=== PATIENT | female | born 1955 | race Caucasian/White ===

== ENCOUNTER → 2016-06-15 | Outpatient (CLI) | payer BC ==
[~2016-06-15] MED LIST: BUPIVACAINE HCL 0.25% 10 ML VIAL As Ordered ONE; BUPIVACAINE HCL 0.5% 10 ML VIAL As Ordered ONE; CONRAY-43 43% 50ML VIAL (Q9960) As Ordered ONE; methylPREDNISolone SUSP 40 MG/ML (DEPO-medrol) VIAL (J1030) As Ordered ONE
--- NOTE | 2016-06-15 15:36 | REP ---
RIGHT HIP INJECTION: The procedure was performed under the direct supervision of Dr. Mccarthy. The benefits and risks including, but not limited to pain, infection, bleeding, and anaphylaxis were explained to the patient and informed consent was obtained. The right femoral neck was localized using fluoroscopic guidance. The skin was prepped and draped in a sterile fashion. 1% lidocaine was used as a local anesthetic. Using fluoroscopic guidance a 22-gauge spinal needle was inserted and advanced to the femoral neck. 0.5 mL of Conray-43 was injected to verify placement. 7 mL of a solution containing 5 mL of 0.25% Marcaine and 2 mL of Depo-Medrol 40 mg was injected. The needle was then removed. The patient tolerated the procedure well and there were no immediate complications. 2 seconds of fluoroscopy time was utilized for this procedure. Reviewed by COREY Dennison 06/16/2016 08:26 AEdited and Signed by Xander Mccarthy MD 06/16/2016 09:56 A
== END ==
LOC: M RADPRO 09:39
PROVIDERS: ATTEND Orthopaedic Surgery Orthopaedic Surgery of the Spine
DX: M16.11 Unilateral primary osteoarthritis, right hip (principal)
CPT/HCPCS: 20611; 77002; J1030; Q9960

== ENCOUNTER → 2016-09-07 | Outpatient (CLI) | payer BC ==
[2016-09-07 10:28] LABS: ALBUMIN 4.2 GM/DL (3.2-5.2); ALKALINE PHOSPHATASE 87 U/L (45-117); ALT/SGPT 27 U/L (12-78); ANION GAP 8 MEQ/L (8-16); AST/SGOT 28 U/L (15-37); BILIRUBIN,TOTAL 0.6 MG/DL (0.2-1.0); BLOOD UREA NITROGEN 18 MG/DL (7-18); CALCIUM LEVEL 9.5 MG/DL (8.5-10.1); CARBON DIOXIDE LEVEL 29 MEQ/L (21-32); CHLORIDE LEVEL 101 MEQ/L (98-107); CHOLESTEROL LEVEL 257 MG/DL (<200); CREATININE FOR GFR 0.75 MG/DL (0.55-1.02); GLOMERULAR FILTRATION RATE > 60.0 (>51); GLUCOSE, FASTING 99 MG/DL (70-105); POTASSIUM SERUM 4.5 MEQ/L (3.5-5.1); SODIUM LEVEL 138 MEQ/L (136-145); TOTAL PROTEIN 7.7 GM/DL (6.4-8.2); TRIGLYCERIDES LEVEL 63 MG/DL (<150)
== END ==
LOC: M LAB 08:59
PROVIDERS: ATTEND Family Medicine
DX: Z00.00 Encounter for general adult medical examination without abnormal findings (principal)

== ENCOUNTER → 2017-01-27 | Outpatient (CLI) | payer BC ==
[~2017-01-27] MED LIST changes: -BUPIVACAINE HCL 0.5% 10 ML VIAL As Ordered ONE; +LIDOCAINE 1% MDV 20ML VIAL As Ordered ONE
--- NOTE | 2017-01-27 15:15 | REP ---
Left hip injection The procedure was performed under the direct supervision of Dr. Mccarthy. The benefits and risks including but not limited to pain infection and bleeding and anaphylaxis were explained to the patient and informed consent was obtained. The left femoral neck was localized using fluoroscopic guidance. The skin was prepped and draped in a sterile fashion. 1% lidocaine was used as a local anesthetic. Using fluoroscopic guidance a 22-gauge spinal needle was inserted and advanced to the femoral neck. 0.5 ml of Conray 43 was injected to verify placement. 7 ml of a solution containing 5 ml of 0.25% Marcaine and 2 ml of Depo Medrol 40 mg was injected. The needle was then removed. The patient tolerated the procedure well and there were no immediate complications. 3 seconds of fluoro time was utilized for this procedure. Reviewed by COREY Dennison 01/27/2017 12:49 PSigned by Xander Mccarthy MD 01/27/2017 03:06 P
== END ==
LOC: M RADPRO 10:21
PROVIDERS: ATTEND Physician Assistant Medical
DX: M25.552 Pain in left hip (principal); M25.551 Pain in right hip
CPT/HCPCS: 20610; 77002; J1030; Q9960

== ENCOUNTER → 2017-01-31 | Outpatient (CLI) | payer BC ==
[~2017-01-31] MED LIST changes: -LIDOCAINE 1% MDV 20ML VIAL As Ordered ONE
--- NOTE | 2017-01-31 16:11 | REP ---
RIGHT HIP ARTHROGRAM: The procedure was performed by COREY Trivedi under the direct supervision of Dr. Wilkinson. The procedure along with its risks, benefits, and complications were discussed with the patient prior to the examination. Informed consent was obtained both verbally and written. The right femoral neck was localized using fluoroscopic guidance. The skin was marked, prepped and draped in the usual sterile fashion. A procedural "time out" was performed to ensure that the correct patient, site and procedure were being performed. 1% lidocaine was used for local anesthetic. Under fluoroscopic guidance a 22-gauge spinal needle was inserted and advanced to the femoral neck. 0.5 mL of Conray-60 was injected to verify needle placement. 7 mL of solution containing 5 mL of 0.25% Marcaine and 2 mL of Depo-Medrol 40 were injected into the joint space. The needle was then removed. The patient tolerated the procedure well and had no immediate complications. Fluoroscopy time: 5 seconds. Reviewed by COREY Scruggs 01/31/2017 04:16 PEdited and Signed by Delvin Wilkinson MD 01/31/2017 04:49 P
== END ==
LOC: M RADPRO 09:40
PROVIDERS: ATTEND Physician Assistant Medical
DX: M25.551 Pain in right hip (principal); M25.552 Pain in left hip
CPT/HCPCS: 20610; 77002; J1030; Q9960

== ENCOUNTER → 2017-04-28 | Outpatient (CLI) | payer BC ==
--- NOTE | 2017-04-28 09:52 | REPMRS ---
Patient History The patient states she had a clinical breast exam in Patient is postmenopausal. Family history of ovarian cancer in paternal aunt at age 50 or over. Digital Woman Screen Mammo: April 28, 2017 - Exam #: [id number] Bilateral CC and MLO view(s) were taken. Technologist: Abbie Lo, Technologist Prior study comparison: May 05, 2016, digital woman screen mammo performed at [facility]. May 04, 2015, digital woman screen mammo performed at [facility]. FINDINGS: There are scattered fibroglandular densities. There has been no change in the appearance of the mammogram from the prior studies. There is a mild amount of residual fibroglandular tissue which is fairly symmetric. There is no interval development of dominant mass, architectural distortion, or clustered microcalcification suggestive of malignancy. ASSESSMENT: BI-RADS/ACR category 1 mammogram. Negative. Recommendation Routine screening mammogram in 1 year (for women over age 40). This mammogram was interpreted with the aid of an FDA-approved computer-aided dectection system. Electronically Signed By: Delvin Wilkinson MD 04/28/17 0952
== END ==
LOC: M WHC 08:27
PROVIDERS: ATTEND Nurse Practitioner Women's Health
DX: Z12.31 Encounter for screening mammogram for malignant neoplasm of breast (principal)

== ENCOUNTER → 2017-04-28 | Outpatient (REF) | payer BC | LOC: M SFHCWAGY 08:52 | PROVIDERS: ATTEND Nurse Practitioner Women's Health | DX: Z12.4 Encounter for screening for malignant neoplasm of cervix (principal) ==

== ENCOUNTER → 2017-08-04 | Outpatient (CLI) | payer BC ==
[~2017-08-04] MED LIST changes: +BUPIVACAINE HCL 0.25% 10 ML VIAL As Ordered; -BUPIVACAINE HCL 0.25% 10 ML VIAL As Ordered ONE; +CONRAY-43 43% 50ML VIAL (Q9960) As Ordered; -CONRAY-43 43% 50ML VIAL (Q9960) As Ordered ONE; +methylPREDNISolone SUSP 40 MG/ML (DEPO-medrol) VIAL (J1030) As Ordered; -methylPREDNISolone SUSP 40 MG/ML (DEPO-medrol) VIAL (J1030) As Ordered ONE
== END ==
LOC: M RADPRO 09:05
DX: M25.551 Pain in right hip (principal); M25.552 Pain in left hip; M16.10 Unilateral primary osteoarthritis, unspecified hip
CPT/HCPCS: 20610

== ENCOUNTER → 2017-09-07 | Outpatient (CLI) | payer BC ==
[2017-09-07 10:36] LABS: TOTAL 25(OH) VITAMIN D 69.2 NG/ML (30.0-100.0)
[2017-09-07 10:40] LABS: ALBUMIN 4.1 GM/DL (3.2-5.2); ALBUMIN/GLOBULIN RATIO 1.24 (1.00-1.93); ALKALINE PHOSPHATASE 81 U/L (45-117); ALT/SGPT 24 U/L (12-78); ANION GAP 8 MEQ/L (8-16); AST/SGOT 24 U/L (7-37); BILIRUBIN,TOTAL 0.4 MG/DL (0.2-1.0); BLOOD UREA NITROGEN 16 MG/DL (7-18); CALCIUM LEVEL 9.2 MG/DL (8.8-10.2); CARBON DIOXIDE LEVEL 25 MEQ/L (21-32); CHLORIDE LEVEL 108 MEQ/L (98-107); CHOLESTEROL LEVEL 243 MG/DL (<200); CREATININE FOR GFR 0.75 MG/DL (0.55-1.30); GLOMERULAR FILTRATION RATE > 60.0 (>45); GLUCOSE, FASTING 98 MG/DL (70-100); HDL CHOLESTEROL 90 MG/DL (>40); LDL CHOLESTEROL 136.6 MG/DL (<100); NON-HDL-C 153 MG/DL; POTASSIUM SERUM 4.3 MEQ/L (3.5-5.1); SODIUM LEVEL 141 MEQ/L (136-145); TOTAL PROTEIN 7.4 GM/DL (6.4-8.2); TRIGLYCERIDES LEVEL 82 MG/DL (<150)
== END ==
LOC: M LAB 09:14
DX: Z00.00 Encounter for general adult medical examination without abnormal findings (principal); E78.5 Hyperlipidemia, unspecified; E07.9 Disorder of thyroid, unspecified; E55.9 Vitamin D deficiency, unspecified

== ENCOUNTER → 2017-12-16 | Outpatient (CLI) | payer BC ==
[2017-12-16 19:05] LABS: HEMATOCRIT 40.1 % (36.0-47.0)
[2017-12-16 19:14] LABS: ESTIMATED AVERAGE GLUCOSE 100 MG/DL (60-110); HEMOGLOBIN A1c 5.1 %
[2017-12-16 19:18] LABS: ALBUMIN 4.4 GM/DL (3.2-5.2)
[2017-12-16 19:18] LABS: IRON (FE) 80 UG/DL (50-170); PERCENT SATURATION 18.2 % (13.2-45.0); TOTAL IRON BINDING CAPACITY 439 UG/DL (250-450)
== END ==
LOC: M WUC 10:27
DX: M16.11 Unilateral primary osteoarthritis, right hip (principal); M25.551 Pain in right hip
CPT/HCPCS: 82040

== ENCOUNTER 2017-12-19 06:44 | Outpatient (RCR) | payer BC | END 2018-01-12 | LOC: M PT 06:44 | DX: M16.11 Unilateral primary osteoarthritis, right hip (principal); Z51.89 Encounter for other specified aftercare ==

== ENCOUNTER → 2018-05-31 | Outpatient (CLI) | payer BC ==
--- NOTE | 2018-05-31 17:46 | REPMRS ---
Patient History The patient states she had a clinical breast exam in 06/02 Family history of ovarian cancer at age 50 or over in paternal aunt. Digital Woman Screen Mammo: May 31, 2018 - Exam #: [id number] Bilateral CC and MLO view(s) were taken. Technologist: Jody Calvert, Technologist Prior study comparison: April 28, 2017, digital woman screen mammo performed at [facility]. May 05, 2016, digital woman screen mammo performed at [facility]. May 04, 2015, digital woman screen mammo performed at [facility]. FINDINGS: There are scattered fibroglandular densities. There is a moderate amount of residual fibroglandular tissue which is fairly symmetric. There is no interval development of dominant mass, architectural distortion, or clustered microcalcification typical of malignancy. There has been no change in the appearance of the mammogram from the prior studies. 3-D tomosynthesis shows no additional findings. Assessment: BI-RADS/ACR category 1 mammogram. Negative. Recommendation Routine screening mammogram of both breasts in 1 year (for women over age 40). This patient's Lifetime Breast Cancer RIsk is estimated at 8.1 %. This mammogram was interpreted with the aid of an FDA-approved computer-aided dectection system. Electronically Signed By: Kennedy Mccarthy MD 05/31/18 [id number]
--- NOTE | 2018-06-04 15:35 | DEXA ---
AP SPINE L1 - L4 1.123 -0.6 0.7 LT FEMUR TOTAL 0.765 -1.9 -1.0 LT NECK 0.860 -1.3 -1.0 RT FEMUR TOTAL Right hip replacement. RT NECK TOTAL BODY TOTAL OTHER COMMENTS: Normal bone densitometry of the spine. There is low bone density of the left hip. The density of the spine has decreased 14.7% since the initial exam on 05/10/2007. The spine density has decreased 6.4% since the most recent exam on 05/04/2015. The density of the left hip has decreased 11.7% since the initial exam on 05/10/2007. The density of the left hip has decreased 1.0% since the most recent exam on 05/04/2015. The density of the right hip is N/A. FOLLOW-UP: Recommendation for the next bone density exam: 2 years. NEHA
== END ==
LOC: M WHC 07:19
PROVIDERS: ATTEND Nurse Practitioner Women's Health
DX: Z12.31 Encounter for screening mammogram for malignant neoplasm of breast (principal); Z78.0 Asymptomatic menopausal state; Z80.41 Family history of malignant neoplasm of ovary; Z96.641 Presence of right artificial hip joint; M85.852 Other specified disorders of bone density and structure, left thigh

== ENCOUNTER → 2018-06-08 | Outpatient (CLI) | payer BC ==
[2018-06-08 12:40] LABS: HEMATOCRIT 41.5 % (36.0-47.0); HEMOGLOBIN 13.5 g/dl (12.0-15.5)
[2018-06-08 13:11] LABS: ALBUMIN 4.3 GM/DL (3.2-5.2); PERCENT SATURATION 16.7 % (13.2-45.0); THYROID STIMULATING HORMONE 3.1 uIU/ML (0.358-3.740)
[2018-06-08 13:27] LABS: HEMOGLOBIN A1c 5.3 %
== END ==
LOC: M LAB 10:55
PROVIDERS: ATTEND Orthopaedic Surgery
DX: M62.81 Muscle weakness (generalized) (principal); M25.552 Pain in left hip; M16.12 Unilateral primary osteoarthritis, left hip

== ENCOUNTER 2018-06-11 08:43 | Outpatient (RCR) | payer BC | END 2018-06-14 | LOC: M PT 08:43 | PROVIDERS: ATTEND Orthopaedic Surgery | DX: M25.552 Pain in left hip (principal) ==

== ENCOUNTER → 2018-06-20 | Outpatient (REF) | payer BC ==
[2018-06-20 14:15] LABS: INR 0.87; PROTHROMBIN TIME 11.9 SECONDS (12.1-14.4)
[2018-06-20 14:16] LABS: APPEARANCE, URINE CLEAR (CLEAR); BACTERIA, URINE AUTO NEGATIVE (NEGATIVE); BILIRUBIN, URINE AUTO NEGATIVE (NEGATIVE); BLOOD, URINE BLOOD NEGATIVE (NEGATIVE); COLOR, URINE STRAW (YELLOW); GLUCOSE, URINE (UA) AUTO NEGATIVE (NEGATIVE); KETONE, URINE AUTO NEGATIVE (NEGATIVE); LEUKOCYTE ESTERASE, URINE AUTO NEGATIVE (NEGATIVE); NITRITE, URINE AUTO NEGATIVE (NEGATIVE); PARTIAL THROMBOPLASTIN TIME 33.5 SECONDS (25.4-37.6); PROTEIN, URINE AUTO NEGATIVE (NEGATIVE); RBC, URINE AUTO 0 /HPF (0-3); SPECIFIC GRAVITY URINE AUTO 1.006 (1.002-1.035); SQUAMOUS EPITHELIAL CELL UR AU 0 /HPF (0-6); UROBILINOGEN, URINE AUTO 0.2 mg/dL (0.0-2.0); WBC, URINE AUTO 0 /HPF (0-3)
== END ==
LOC: M LAB REF 13:06
PROVIDERS: ATTEND Family Medicine
DX: Z01.818 Encounter for other preprocedural examination (principal); M16.9 Osteoarthritis of hip, unspecified; M85.9 Disorder of bone density and structure, unspecified

== ENCOUNTER → 2018-12-05 | Outpatient (REF) | payer BC | LOC: M SFHCPLAZ 18:07 | PROVIDERS: ATTEND Dermatology | DX: D04.72 Carcinoma in situ of skin of left lower limb, including hip (principal) ==

== ENCOUNTER → 2019-01-30 | Outpatient (REF) | payer BC | LOC: M LAB REF 18:22 | PROVIDERS: ATTEND Dermatology | DX: D23.5 Other benign neoplasm of skin of trunk (principal) ==

== ENCOUNTER 2019-05-22 08:05 | Day surgery (SDC) | payer BC ==
[~2019-05-22] VITALS: Ht 160 cm; Wt 54.2 kg
[~2019-05-22 08:05] MED LIST changes: -BUPIVACAINE HCL 0.25% 10 ML VIAL As Ordered; +CALC500C14 PO; +CELE1CAP9 PO; -CONRAY-43 43% 50ML VIAL (Q9960) As Ordered; +MULTCAP PO; +NS 1,000 ML IV ONE; +VITA250T4 PO; +VITA500079 PO; +ZINC1TAB2 PO; -methylPREDNISolone SUSP 40 MG/ML (DEPO-medrol) VIAL (J1030) As Ordered
[2019-05-22] MEDS ORDERED: LIDOCAINE 2% INJ 100 MG/5 ML SDV (FOR ANES.) As Ordered ONE (08:28)
[2019-05-22] MEDS ORDERED: propofoL 200 MG/20 ML VIAL As Ordered ONE ×2 (08:28→09:15)
--- NOTE | 2019-05-22 09:23 | ROOR ---
Patient Name: Cher Vivas Procedure Date: 05/22/2019 8:44 AM Date of : 1955 Age: 64 Room: [facility] Gender: Female Note Status: Finalized Procedure: Total Colonoscopy to Cecum Indications: Screening for colorectal malignant neoplasm Providers: Celestino Theodore MD Referring MD: Neto Camp MD Requesting Provider: Medicines: Monitored Anesthesia Care Complications: No immediate complications. Procedure: Pre-Anesthesia Assessment: - The heart rate, respiratory rate, oxygen saturations, blood pressure, adequacy of pulmonary ventilation, and response to care were monitored throughout the procedure. The Colonoscope was introduced through the anus and advanced to the cecum, identified by appendiceal orifice and ileocecal valve. The colonoscopy was performed without difficulty. The patient tolerated the procedure well. The quality of the bowel preparation was excellent. Findings: The perianal and digital rectal examinations were normal. Non-bleeding internal hemorrhoids were found during retroflexion. The hemorrhoids were small and Grade I (internal hemorrhoids that do not prolapse). Multiple small-mouthed diverticula were found in the recto-sigmoid colon, sigmoid colon and descending colon. The exam was otherwise without abnormality on direct and retroflexion views. Impression: - Non-bleeding internal hemorrhoids. - Diverticulosis in the recto-sigmoid colon, in the sigmoid colon and in the descending colon. - The examination was otherwise normal on direct and retroflexion views. - No specimens collected. - The exam was otherwise normal to the cecum. Recommendation: - Patient has a contact number available for emergencies. The signs and symptoms of potential delayed complications were discussed with the patient. Return to normal activities tomorrow. Written discharge instructions were provided to the patient. - High fiber diet. - Discharge patient to home. - Continue present medications. - Repeat colonoscopy in 10 years for screening purposes. - Return to referring physician. - The findings and recommendations were discussed with the patient's family. Celestino Theodore MD Celestino Theodore MD 05/22/2019 9:23:08 AM Electronically signed by Celestino Theodore MD Number of Addenda: 0 Note Initiated On: 05/22/2019 8:44 AM Estimated Blood Loss: Estimated blood loss: none.
[2019-05-22 09:40] VITALS: BP 95/52
== END 2019-05-22 09:51 | disposition home or self-care (01) ==
LOC: M OPP 08:05
PROVIDERS: ATTEND Internal Medicine Gastroenterology
DX: Z12.11 Encounter for screening for malignant neoplasm of colon (principal); K64.0 First degree hemorrhoids; K57.30 Diverticulosis of large intestine without perforation or abscess without bleeding

== ENCOUNTER → 2019-06-03 | Outpatient (CLI) | payer BC ==
[~2019-06-03] MED LIST changes: -NS 1,000 ML IV ONE
--- NOTE | 2019-06-03 15:37 | REPMRS ---
Patient History The patient states she had a clinical breast exam in May 2019.Family history of ovarian cancer at age 50 or over in paternal aunt. Digital Woman Screen Mammo: June 03, 2019 - Exam #: [id number] Bilateral CC and MLO view(s) were taken. Technologist: Naheed Rebollar, Technologist Prior study comparison: May 31, 2018, bilateral digital woman screen mammo performed at [facility]. April 28, 2017, digital woman screen mammo performed at [facility]. May 05, 2016, digital woman screen mammo performed at [facility]. FINDINGS: There are scattered fibroglandular densities. There is a moderate amount of residual fibroglandular tissue which is fairly symmetric. There is no interval development of dominant mass, architectural distortion, or grouped microcalcification typical of malignancy. There has been no change in the appearance of the mammogram from the prior studies. 3-D tomosynthesis shows no additional findings. Assessment: BI-RADS/ACR category 1 mammogram. Negative Mammogram. Recommendation Routine screening mammogram of both breasts in 1 year (for women over age 40). This patient's Lifetime Breast Cancer RIsk is estimated at 7.8 %. This mammogram was interpreted with the aid of an FDA-approved computer-aided dectection system. Electronically Signed By: Kennedy Mccarthy MD 06/03/19 [id number]
== END ==
LOC: M WHC 10:17
PROVIDERS: ATTEND Nurse Practitioner Women's Health
DX: Z12.31 Encounter for screening mammogram for malignant neoplasm of breast (principal)

== ENCOUNTER → 2019-06-03 | Outpatient (REF) | payer BC | LOC: M SFHCWAGY 13:20 | PROVIDERS: ATTEND Nurse Practitioner Women's Health | DX: Z12.4 Encounter for screening for malignant neoplasm of cervix (principal) ==

== ENCOUNTER → 2019-12-05 | Outpatient (CLI) | payer BC ==
[2019-12-05 10:18] LABS: ALBUMIN 4.4 GM/DL (3.2-5.2); ALT/SGPT 25 U/L (12-78); BILIRUBIN,TOTAL 0.4 MG/DL (0.2-1.0); BLOOD UREA NITROGEN 22 MG/DL (7-18); CALCIUM LEVEL 9.6 MG/DL (8.8-10.2); CARBON DIOXIDE LEVEL 31 MEQ/L (21-32); CHLORIDE LEVEL 104 MEQ/L (98-107); CHOLESTEROL LEVEL 252 MG/DL (<200); CHOLESTEROL RISK RATIO 2.709 (<5); CREATININE FOR GFR 0.84 MG/DL (0.55-1.30); GLOMERULAR FILTRATION RATE > 60.0 (>45); GLUCOSE, FASTING 103 MG/DL (70-100); HDL CHOLESTEROL 93 MG/DL (>40); LDL CHOLESTEROL 149 MG/DL (<100); NON-HDL-C 159 MG/DL; POTASSIUM SERUM 4.1 MEQ/L (3.5-5.1); SODIUM LEVEL 139 MEQ/L (136-145); TOTAL PROTEIN 7.7 GM/DL (6.4-8.2); TRIGLYCERIDES LEVEL 49 MG/DL (<150)
== END ==
LOC: M LAB 09:21
PROVIDERS: ATTEND Family Medicine
DX: Z00.00 Encounter for general adult medical examination without abnormal findings (principal)

== ENCOUNTER → 2020-06-11 | Outpatient (CLI) | payer BC ==
[2020-06-11 14:51] LABS: ALBUMIN 4.3 GM/DL (3.2-5.2); ALT/SGPT 27 U/L (12-78); BILIRUBIN,TOTAL 0.3 MG/DL (0.2-1.0); BLOOD UREA NITROGEN 13 MG/DL (7-18); CALCIUM LEVEL 10.2 MG/DL (8.8-10.2); CARBON DIOXIDE LEVEL 29 MEQ/L (21-32); CHLORIDE LEVEL 97 MEQ/L (98-107); CHOLESTEROL LEVEL 235 MG/DL (<200); CHOLESTEROL RISK RATIO 3.012 (<5); CREATININE FOR GFR 0.73 MG/DL (0.55-1.30); FREE T4 1.07 NG/DL (0.76-1.46); GLOMERULAR FILTRATION RATE > 60.0 (>45); GLUCOSE, FASTING 92 MG/DL (70-100); HDL CHOLESTEROL 78 MG/DL (>40); LDL CHOLESTEROL 139 MG/DL (<100); NON-HDL-C 157 MG/DL; POTASSIUM SERUM 4.3 MEQ/L (3.5-5.1); SODIUM LEVEL 133 MEQ/L (136-145); TOTAL PROTEIN 7.5 GM/DL (6.4-8.2); TRIGLYCERIDES LEVEL 88 MG/DL (<150)
[2020-06-11 15:52] LABS: TOTAL 25(OH) VITAMIN D 61.8 NG/ML (30.0-100.0)
== END ==
LOC: M LAB 11:52
PROVIDERS: ATTEND Family Medicine
DX: E78.5 Hyperlipidemia, unspecified (principal); E07.9 Disorder of thyroid, unspecified

== ENCOUNTER → 2020-06-16 | Outpatient (CLI) | payer BC ==
--- NOTE | 2020-06-16 11:43 | REPMRS ---
Patient History The patient states she had a clinical breast exam in 06/2020 Patient is postmenopausal and has history of skin cancer at age 63. Family history of ovarian cancer at age 50 or over in paternal aunt. Digital Woman Screen Mammo: June 16, 2020 - Exam #: [id number] Bilateral CC and MLO view(s) were taken. Technologist: Jody Calvert, Technologist Prior study comparison: June 03, 2019, bilateral digital woman screen mammo performed at [facility]. May 31, 2018, bilateral digital woman screen mammo performed at [facility]. April 28, 2017, digital woman screen mammo performed at [facility]. FINDINGS: The breast tissue is heterogeneously dense. This may lower the sensitivity of mammography. The Volpara volumetric breast density category is: C. There is a moderate amount of heterogeneously dense fibroglandular tissue which is fairly symmetric. There is no interval development of dominant mass, architectural distortion, or grouped microcalcification typical of malignancy. There has been no change in the appearance of the mammogram from the prior studies. 3-D tomosynthesis shows no additional findings. Assessment: BI-RADS/ACR category 1 mammogram. Negative Mammogram. Recommendation Routine screening mammogram of both breasts in 1 year (for women over age 40). This patient's [facility] Lifetime Breast Cancer RIsk is estimated at 7.5 %. This mammogram was interpreted with the aid of an FDA-approved computer-aided dectection system. Electronically Signed By: Kennedy Mccarthy MD 06/16/20 2630
== END ==
LOC: M WHC 10:01
PROVIDERS: ATTEND Nurse Practitioner Women's Health
DX: Z12.31 Encounter for screening mammogram for malignant neoplasm of breast (principal); Z85.828 Personal history of other malignant neoplasm of skin

== ENCOUNTER 2020-06-25 16:44 | Emergency (ER) | payer BC ==
[~2020-06-25] VITALS: Ht 160 cm; Wt 60.4 kg
--- OUTSIDE RECORDS SUMMARY | 2020-06-25 16:53 | CCD | Continuity of Care Document ---
Author Author Cher BRONSON M.D. Organization Unknown Address [address] [address] Phone [phone] Care Team Providers Care Enginehouse Brakeman Name Role Phone Neto Bronson MD [facility] [phone] Problems Active Problems Provider Date Cartilage disorder Onset: Insomnia Onset: Hyperlipidemia Onset: Social History Type Date Description Comments Sex Unknown ETOH Use consumes 2-3 beers per day Tobacco Use Start: Unknown Patient has never smoked Allergies, Adverse Reactions, Alerts Description No Known Drug Allergies Medications Active Medications SIG Qnty Indications Ordering Provide r Date Glucosamine-Chondroitin Capsules by mouth bid Neto Bronson M.D. 02/23/2016 Vitamin D3 2000Unit Capsules 1 by mouth every day Neto Bronson M.D. 02/23/2016 Tylenol Extra Strength 500mg Table ts 2 pills bid Neto Bronson M.D. 02/23/2016 Calcium 600 600mg Tablets 1 p o bid Neto Bronson M.D. 12/09/2014 Vitamin C 1000mg Tablets 1 by mouth every day Neto Bronson M.D. 12/09/2014 Multivitamins Capsules 1 by mouth every day Neto Bronson M.D. 12/09/2014 Immunizations CPT Code Status Date Vaccine Lot # [id number] Given 04/14/2019 Shingrix Zoster Vaccine (HZV), Recombinant, Subunit, Adjuvanted U-Flu Given 02/19/2018 Influenza,Unspecified 34030 Given 02/12/2014 Influenza Virus Vaccine 40919 Given 04/03/2013 Influenza Virus Vaccine 10979 Given 03/08/2012 Influenza Virus Vaccine 67966 Given 05/15/2009 Adacel- Tetanus Diphtheria P ertussis (Age64 & Under) 45780 Given 05/15/2009 Influenza Virus Vaccine Vital Signs Date Vital Result Comment 06/17/2020 8:01am BP Systolic 126 mmHg BP Diastolic 70 mmHg Heart Rate 72 /min Height 64 inches 5'4" Weight 127.00 lb BMI (Body Mass Index) 21.8 kg/m2 12/10/2019 1:08pm BP Systolic 146 mmHg BP Diastolic 90 mmHg BP Systolic Recheck 128 mmHg BP Diastolic Recheck 78 mmHg Heart Rate 92 /min Height 64 inches 5'4" Weight 125.00 lb BMI (Body Mass Index) 21.5 kg/m2 Results Test Acquired Date Facility Test Result H/L Range Note Comprehensive Metabolic Profil 06/11/2020 [facility] [address] [place] [address] [phone] Glucose, Fasting 92 mg/dL Normal 70-100 Blood Urea Nitrogen 13 mg/dL Normal 7-18 Creatinine For GFR 0.73 mg/dL Normal 0.55-1.30 Glomerular Filtration Rate > 60.0 Normal >45 1 Sodium Level 133 mEq/L Low 136-145 Potassium Serum 4.3 mEq/L Normal 3.5-5.1 Chloride Level 97 mEq/L Low 98-107 Carbon Dioxide Level 29 mEq/L Normal 21-32 Anion Gap 7 mEq/L Low 8-16 Calcium Level 10.2 mg/dL Normal 8.8-10.2 Ast/Sgot 23 U/L Normal 7-37 Alt/SGPT 27 U/L Normal 12-78 Alkaline Phosphatase 95 U/L Normal 45-117 Bilirubin,Total 0.3 mg/dL Normal 0.2-1.0 Total Protein 7.5 GM/DL Normal 6.4-8.2 Albumin 4.3 GM/DL Normal 3.2-5.2 Albumin/Globulin Ratio 1.3 Normal 1.2-2.2 Lipid Panel 06/11/2020 [facility] [address] [address] [place] [address] [phone] Triglycerides Level 88 mg/dL Normal <150 Cholesterol Level 235 mg/dL High <200 HDL Cholesterol 78 mg/dL Normal >40 LDL Cholesterol 139 mg/dL High <100 Non-HDL-C 157 mg/dL Normal Cholesterol Risk Ratio 3.012 Normal <5 FT4&TSH Panel 06/11/2020 [facility] [address] [place] [address] [phone] Thyroid Stimulating Hormone 2.690 uIU/ML Normal 0. 358-3.740 Free T4 1.07 ng/dL Normal 0.76-1.46 Laboratory test finding 06/11/2020 [facility] [address] [place] [address] [phone] Total 25(Oh) Vitamin D 61.8 NG/ML Normal 30.0-100. 0 1 Units are mL/min/1.73 m2 Chronic Kidney Disease Staging per NKF: Stage I & II GFR >=60 Normal to Mildly Decreased Stage III GFR 30-59 Moderately Decreased Stage IV GFR 15-29 Severely Decreased Stage V GFR <15 Very Little GFR Left ESRD GFR <15 on SECRET CODE EXPERT Procedures Date Code Description Status 05/22/2019 [id number] Colonoscopy Completed 05/31/2018 [id number] Bone Mineral Density Test Comple justin 05/31/2018 [id number] Mammogram Completed 04/28/2017 [id number] Mammogram Completed 05/04/2015 [id number] Bone Mineral Density Test Comple justin 05/04/2015 [id number] Mammogram Completed 05/03/2013 [id number] Mammogram Completed 08/14/2008 [id number] Colonoscopy Completed Medical Devices Description No Information Available Encounters Type Date Location Provider Dx Diagnosis Office Visit 06/17/2020 8:00a [facility] Neto Bronson M.D. Z00.00 Encntr for general adult medical exam w/ o abnormal findings E78.5 Hyperlipidemia, unspecified E07.9 Disorder of thyroid, unspeci fied E55.9 Vitamin D deficiency, unspec ified M85.9 Disorder of bone density and structure, unspecified Z85.828 Personal history of other ma lignant neoplasm of skin Z96.643 Presence of artificial hip j oint, bilateral Assessments Date Code Description Provider 06/17/2020 Z00.00 Encounter for genera l adult medical examination without abnormal findings Neto Bronson M.D. 06/17/2020 E78.5 Hyperlipidemia, unspecified Alexis Bronson M.D. 06/17/2020 E07.9 Disorder of thyroid, unspecified Neto Bronson M.D. 06/17/2020 E55.9 Vitamin D deficiency, unspecifie d Neto Bronson M.D. 06/17/2020 M85.9 Disorder of bone density and str ucture, unspecified Neto Bronson M.D. 06/17/2020 Z85.828 Personal history of other malign ant neoplasm of skin Neto Bronson M.D. 06/17/2020 Z96.643 Presence of artificial hip joint , bilateral Neto Bronson M.D. Plan of Treatment Future Appointment(s):* 12/29/2020 8:00 am - Neto Bronson M.D. at [facility] 06/17/2020 - Neto Bronson M.D.* Z00.00 Encntr for general adult medical exam w/o abnormal findings * E78.5 Hyperlipidemia, unspecified * E07.9 Disorder of thyroid, unspecified * E55.9 Vitamin D deficiency, unspecified * M85.9 Disorder of bone density and structure, unspecified * Z85.828 Personal history of other malignant neoplasm of skin * Z96.643 Presence of artificial hip joint, bilateral * * Comments:* 1. Annual wellness visit: Well education was done today. She usually sees Naheed Rodriguez for her Computer Systems Information Director care, although has not seen her recently. She has recently changed her dentist and follows with Dr. Irvin. Immunization discussed and she is up to date with her Tdap. She overall feels great and will continue appropriate follow up.2. Hyperlipidemia: Her lipids are improved from prior check. Her 10-year risk for heart attack and stroke is 3.7%. She does not need any medicine at this point. She will continue to watch her diet and encouraged to be more active.3. Thyroid disorder: Normalized TSH after her borderline high on last check. Her free T4 is always normal. Discussed about her thyroid levels in detail. She is at subclinical hypothyroidism. We will continue to monitor and treat if necessary.4. Vitamin D deficiency: Normal vitamin D level with history of osteopenia. She will continue supplementation at current dose. We will monitor.5. Personal history of malignant neoplasm of skin: Follows with Dr. Coker annually. We will monitor.6. Disorder of bone density and structure: She does have osteopenia. She has been on Calcium and Vitamin D supplementation. I have encouraged her to exercise when possible. Her last Dexa scan was in May 2018 and will obtain a new one appropriately. We will monitor.7. Presence of artificial hip joint, bilateral: Stable. Saw at [facility] [place] [place] prior. She will follow up with them as needed.8. Raynaud's phenomenon: Involving hands and fingers. Discussed about this in detail and education was done. I have encouraged her to use warm gloves and protect herself from frostbite. She will let me know if she has any concerns. We will monitor.Ongoing cares: I am going to see her again in 6 months with CMP, lipids, TSH and FT4. If she has new problems or issues sooner she will let us know. Functional Status Description No Information Available Mental Status Description No Information Available Referrals Description No Information Available
--- OUTSIDE RECORDS SUMMARY | 2020-06-25 16:53 | CCD ---
Author Author [facility] Organization [facility] Address Unknown Phone Unavailable Care Team Providers Care Die Mounter Name Role Phone Naheed Rodriguez Unavailable PROBLEMS Type Condition ICD9-CM Code [id number] Code Onset Dates Condition S tatus W/U Status Risk SNOMED Code Notes Problem Actinic keratoses L57.0 Active confirmed 40 1425998 Problem Seborrheic keratoses L82.1 Active confirmed 119589696 Problem History of nonmelanoma skin cancer Z85.828 Activ e confirmed 853921714 Problem Postmenopausal bleeding 627.1 Active confirmed 47845872 Problem Melanocytic nevi of right upper limb, including shoulder D22.61 Active confirmed 548332613 Problem Lentigines L81.4 Active confirmed 111303765 Problem Melanocytic nevi of trunk D22.5 Active confirmed 202282785 Problem Osteopenia after menopause M81.0 Active confirmed 969814387 Problem Melanocytic nevi of face D22.30 Active confirmed 255903921 Problem Melanocytic nevi of left lower limb, including hip D22.72 Active confirmed 876402936 Problem Melanocytic nevi of right lower limb, including hip D22.71 Active confirmed 284155779 Problem Melanocytic nevi of left upper limb, including shoulder D22.62 Active confirmed 116627832 ALLERGIES No Known Allergies ENCOUNTERS from 1955 to 2020-06-19 Encounter Location Date Provider Diagnosis [facility] [address] [place] [address] Jun, Naheed Rodriguez Routine gynecologica l examination Z01.419 and Breast cancer screening by mammogram Z12.31 IMMUNIZATIONS No Information SOCIAL HISTORY Tobacco Use: Social History Observation Description Date Details (start date - stop date) Never Smoker Sex Assigned At : Social History Observation Description Sex Assigned At Unknown Sexual Hx: Question Answer Notes Had sex in the last 12 months (vaginal, oral, or anal)? Yes LMP: post menopause Have you ever had an STD? No with Men only Use protection? No Alcohol Screening: Question Answer Notes Did you have a drink containing alcohol in the past year? Ye s Points 4 Interpretation Positive How often did you have six or more drinks on one occas ion in the past year? Less than monthly (1 point) How many drinks did you have on a typica l day when you were drinking in the past year? 1 or 2 (0 points) How often did you have a drink containing alcohol in t he past year? Two to three times per week (3 points) Tobacco Use: Question Answer Notes Are you a: never smoker never smoker REASON FOR REFERRAL No Information VITAL SIGNS Weight 125 lbs Jun, Weight-kg 56.7 kg Jun, Height 63.25 in Jun, BMI 21.97 kg/m2 Jun, Blood pressure systolic 110 mm Hg Jun, Blood pressure diastolic 72 mm Hg Jun, MEDICATIONS Medication SIG (Take, Route, Frequency, Duration) Notes Start Da te End Date Status Multivitamins otc 1 tablet Orally once a day Active Fish Oil 1000 MG 1 capsule Orally once a day Not-Taking Glucosamine 500 MG 1 capsule with a meal Orally Daily Active Calcium 600 + D 600-400 MG-UNIT 1 tablet Orally twice a day Active Zinc 100 mg 1 tab(s) p.o. Once a day for 30 day(s) Active Vitamin D 1000 UNIT 1 tablet Orally Once a day Active Vitamin C 500 MG 1 tablet Orally once a day Active PROCEDURES No Information RESULTS Component Value Reference Range WWBC DIGITAL / [place] BILATERAL MAMMO SCRE ENING (Ultrasound if indicated) Reviewed date:06/18/2020 11:55:50 Interpretation:Negative Performing Lab:[facility],[address]], ,[place] [id number] REASON FOR VISIT ANNUAL/MAMMO MEDICAL (GENERAL) HISTORY Type Description Date Medical History family history osteoporosis in mother an d sister Medical History postmenopause Surgical History dental surgery; left side implant Surgical History colonoscopy 2019 Surgical History bunionectomy 02/2015 Surgical History right hip replacement 12/2017 Surgical History left hip replacement 06/2018 Hospitalization History No Hospitalization history informati on Goals Section No Information Health Concerns No Information MEDICAL EQUIPMENT No Information MENTAL STATUS No Information FUNCTIONAL STATUS No Information ASSESSMENTS Encounter Date Diagnosis Assessment Notes Treatment Notes Treatm ent Clinical Notes Jun, Routine gynecological examination (ICD-10 - Z01. 419) pap due in 2022. Dexa due at age 67. Cont with yearly mammography. , Reviewed diet and exercise. Reviewed abnormal breast findings that could indicate breast cancer including: leaking fluid from nipples, excessive itching of breasts/nipples, skin changes, nipple inversion, physical changes in breast appearance, masses, nodules, or lumps noted when palpating breasts. Jun, Breast cancer screening by mammogram (ICD-10 - Z 12.31) PLAN OF TREATMENT Treatment Notes Assessment Notes Clinical Notes Routine gynecological examination pap du e in 2022. Dexa due at age 67. Cont with yearly mammography., Reviewed diet and exercise.Reviewed abnormal breast findings that could indicate breast cancer including: leaking fluid from nipples , excessive itching of breasts/nipples, skin changes, nipple inversion, physical changes in breast appearance, masses, nodules, or lumps noted when palpating breasts. Next Appt Details 1 Year Reason:mammo Provider Name:Timothy Coker, 2020-07 08:15:00 AM, [address], [address], [place], [address], Follow Up:1 Yearmammo Insurance Providers Payer Name Payer Address Payer Phone Insured Name Patient Relati onship to Insured Coverage Start Date Coverage End Date [facility] [phone] [facility] [id number] KAREN MCDONALD self
--- OUTSIDE RECORDS SUMMARY | 2020-06-25 16:53 | CCD | Continuity of Care Document ---
Author Author Cher CAMP M.D. Organization Unknown Address [address] [address] Phone [phone] Care Team Providers Care Finance Professional Name Role Phone Neto Camp MD [facility] [phone] Problems Active Problems Provider Date Cartilage disorder Onset: Insomnia Onset: Hyperlipidemia Onset: Social History Type Date Description Comments Sex Unknown ETOH Use consumes 2-3 beers per day Tobacco Use Start: Unknown Patient has never smoked Allergies, Adverse Reactions, Alerts Description No Known Drug Allergies Medications Active Medications SIG Qnty Indications Ordering Provide r Date Glucosamine-Chondroitin Capsules by mouth bid Neto Camp M.D. 02/23/2016 Vitamin D3 2000Unit Capsules 1 by mouth every day Neto Camp M.D. 02/23/2016 Tylenol Extra Strength 500mg Table ts 2 pills bid Neto Camp M.D. 02/23/2016 Calcium 600 600mg Tablets 1 p o bid Neto Camp M.D. 12/09/2014 Vitamin C 1000mg Tablets 1 by mouth every day Neto Camp M.D. 12/09/2014 Multivitamins Capsules 1 by mouth every day Neto Camp M.D. 12/09/2014 Immunizations CPT Code Status Date Vaccine Lot # [id number] Given 04/14/2019 Shingrix Zoster Vaccine (HZV), Recombinant, Subunit, Adjuvanted U-Flu Given 02/19/2018 Influenza,Unspecified 81017 Given 02/12/2014 Influenza Virus Vaccine 58878 Given 04/03/2013 Influenza Virus Vaccine 57282 Given 03/08/2012 Influenza Virus Vaccine 38269 Given 05/15/2009 Adacel- Tetanus Diphtheria P ertussis (Age64 & Under) 70052 Given 05/15/2009 Influenza Virus Vaccine Vital Signs [...] H/L Range Note Comprehensive Metabolic Profil 06/11/2020 [facility] [address] [place] [address] [phone] Glucose, Fasting 92 mg/dL Normal 70-100 Blood [...] Ratio 1.3 Normal 1.2-2.2 Lipid Panel 06/11/2020 [facility] [address] [place] [address] [phone] Triglycerides Level 88 mg/dL Normal <150 Cholesterol Level 235 mg/dL High <200 HDL Cholesterol 78 mg/dL Normal >40 LDL Cholesterol 139 mg/dL High <100 Non-HDL-C 157 mg/dL Normal Cholesterol Risk Ratio 3.012 Normal <5 FT4&TSH Panel 06/11/2020 [facility] [address] [place] [address] [phone] Thyroid Stimulating Hormone 2.690 uIU/ML Normal 0. 358-3.740 Free T4 1.07 ng/dL Normal 0.76-1.46 Laboratory test finding 06/11/2020 [facility] [address] [place] [address] [phone] Total 25(Oh) Vitamin D 61.8 NG/ML Normal 30.0-100. 0 1 Units are mL/min/1.73 m2 Chronic Kidney Disease Staging per NKF: Stage I & II GFR >=60 Normal to Mildly Decreased Stage III GFR 30-59 Moderately Decreased Stage IV GFR 15-29 Severely Decreased Stage V GFR <15 Very Little GFR Left ESRD GFR <15 on [employer] Procedures Date Code Description Status 05/22/2019 [id number] Colonoscopy Completed 05/31/2018 [id number] Bone Mineral Density Test Comple justin 05/31/2018 [id number] Mammogram Completed 04/28/2017 [id number] Mammogram Completed 05/04/2015 [id number] Bone Mineral Density Test Comple justin 05/04/2015 [id number] Mammogram Completed 05/03/2013 [id number] Mammogram Completed 08/14/2008 [id number] Colonoscopy Completed Medical Devices Description No Information Available Encounters Description No Information Available Assessments Date Code Description Provider 06/17/2020 Z00.00 Encounter for genera l adult medical examination without abnormal findings Neto Camp M.D. 06/17/2020 E78.5 Hyperlipidemia, unspecified Alexis Camp M.D. 06/17/2020 E07.9 Disorder of thyroid, unspecified Neto Camp M.D. 06/17/2020 E55.9 Vitamin D deficiency, unspecifie d Neto Camp M.D. 06/17/2020 Z85.828 Personal history of other malign ant neoplasm of skin Neto Camp M.D. 06/17/2020 M85.9 Disorder of bone density and str ucture, unspecified Neto Camp M.D. 06/17/2020 Z96.643 Presence of artificial hip joint , bilateral Neto Camp M.D. Plan of Treatment No Information Available Functional Status Description No Information Available Mental Status Description No Information Available Referrals Description No Information Available
--- OUTSIDE RECORDS SUMMARY | 2020-06-25 16:53 | CCD | Continuity of Care Document ---
Author Author Cher CAMP M.D. Organization Unknown Address [address] [address] Phone [phone] Care Team Providers Care Marketing Support Manager Name Role Phone Neto Camp [facility] [phone] Problems Active Problems Provider Date Cartilage disorder [...] CPT Code Status Date Vaccine Lot # [id number] Given 04/14/2019 Shingrix Zoster Vaccine (HZV), Recombinant, Subunit, Adjuvanted U-Flu Given 02/19/2018 Influenza,Unspecified 49867 Given 02/12/2014 Influenza Virus Vaccine 21275 Given 04/03/2013 Influenza Virus Vaccine 24627 Given 03/08/2012 Influenza Virus Vaccine 97832 Given 05/15/2009 Adacel- Tetanus Diphtheria P ertussis (Age64 & Under) 41457 Given 05/15/2009 Influenza Virus Vaccine Vital Signs [...] H/L Range Note Comprehensive Metabolic Profil 06/11/2020 [facility] [address] [place] [address] [phone] Glucose, Fasting 92 mg/dL Normal 70-100 Blood [...] Ratio 1.3 Normal 1.2-2.2 Lipid Panel 06/11/2020 [facility] [address] [place] [address] [phone] Triglycerides Level 88 mg/dL Normal <150 Cholesterol Level 235 mg/dL High <200 HDL Cholesterol 78 mg/dL Normal >40 LDL Cholesterol 139 mg/dL High <100 Non-HDL-C 157 mg/dL Normal Cholesterol Risk Ratio 3.012 Normal <5 FT4&TSH Panel 06/11/2020 [facility] [address] [place] [address] [phone] Thyroid Stimulating Hormone 2.690 uIU/ML Normal 0. 358-3.740 Free T4 1.07 ng/dL Normal 0.76-1.46 Laboratory test finding 06/11/2020 [facility] [address] [place] [address] [phone] Total 25(Oh) Vitamin D 61.8 NG/ML Normal 30.0-100. 0 1 Units are mL/min/1.73 m2 Chronic Kidney Disease Staging per NKF: Stage I & II GFR >=60 Normal to Mildly Decreased Stage III GFR 30-59 Moderately Decreased Stage IV GFR 15-29 Severely Decreased Stage V GFR <15 Very Little GFR Left ESRD GFR <15 on [employer] Procedures Date Code Description Status 05/22/2019 [id number] Colonoscopy Completed 05/31/2018 [id number] Bone Mineral Density Test Comple justin 05/31/2018 [id number] Mammogram Completed 04/28/2017 [id number] Mammogram Completed 05/04/2015 [id number] Bone Mineral Density Test Comple justin 05/04/2015 [id number] Mammogram Completed 05/03/2013 [id number] Mammogram Completed 08/14/2008 [id number] Colonoscopy Completed Medical Devices Description No Information Available Encounters Description No Information Available Assessments Description No Information Available Plan of Treatment No Information Available Functional Status Description No Information Available Mental Status Description No Information Available Referrals Description No Information Available
--- OUTSIDE RECORDS SUMMARY | 2020-06-25 16:53 | CCD ---
Author Author [facility] Organization [facility] Address Unknown Phone Unavailable Care Team Providers Care Aircraft Avionics Technician Name Role Phone Seema Camp MD Unavailable Unavailable Seema Camp MD Unavailable Unavailable Seema Camp MD Unavailable Unavailable Seema Camp MD Unavailable Unavailable Seema Camp MD Unavailable Unavailable Seema Camp MD Unavailable Unavailable Seema Camp MD Unavailable Unavailable Seema Camp MD Unavailable Unavailable Seema Camp MD Unavailable Unavailable Seema Camp MD Unavailable Unavailable Seema Camp MD Unavailable Unavailable Seema Camp MD Unavailable Unavailable Seema Camp MD Unavailable Unavailable Seema Camp MD Unavailable Unavailable Seema Camp MD Unavailable Unavailable Seema Camp MD Unavailable Unavailable Seema Camp MD Unavailable Unavailable Seema Camp MD Unavailable Unavailable Seema Camp MD Unavailable Unavailable Seema Camp MD Unavailable Unavailable Seema Camp MD Unavailable Unavailable Seema Camp MD Unavailable Unavailable Seema Camp MD Unavailable Unavailable Seema Camp MD Unavailable Unavailable Seema Camp MD Unavailable Unavailable Seema Camp MD Unavailable Unavailable Seema Camp MD Unavailable Unavailable Seema Camp MD Unavailable Unavailable Seema Camp MD Unavailable Unavailable Seema Camp MD Unavailable Unavailable Seema Camp MD Unavailable Unavailable Seema Camp MD Unavailable Unavailable Seema Camp MD Unavailable Unavailable Seema Camp MD Unavailable Unavailable White, F Neto MD Unavailable Unavailable White, F Neto MD Unavailable Unavailable White, F Neto MD Unavailable Unavailable White, F Neto MD Unavailable Unavailable White, F Neto MD Unavailable Unavailable White, F Neto MD Unavailable Unavailable White, F Neto MD Unavailable Unavailable White, F Neto MD Unavailable Unavailable White, F Neto MD Unavailable Unavailable White, F Neto MD Unavailable Unavailable White, F Neto MD Unavailable Unavailable White, F Neto MD Unavailable Unavailable White, F Neto MD Unavailable Unavailable White, F Neto MD Unavailable Unavailable White, F Neto MD Unavailable Unavailable White, F Neto MD Unavailable Unavailable White, F Neto MD Unavailable Unavailable White, F Neto MD Unavailable Unavailable White, F Neto MD Unavailable Unavailable White, F Neto MD Unavailable Unavailable White, F Neto MD Unavailable Unavailable White, F Neto MD Unavailable Unavailable White, F Neto MD Unavailable Unavailable White, F Neto MD Unavailable Unavailable White, F Neto MD Unavailable Unavailable White, F Neto MD Unavailable Unavailable White, F Neto MD Unavailable Unavailable White, F Neto MD Unavailable Unavailable White, F Neto MD Unavailable Unavailable White, F Neto MD Unavailable Unavailable White, F Neto MD Unavailable Unavailable White, F Neto MD Unavailable Unavailable White, F Neto MD Unavailable Unavailable White, F Neto MD Unavailable Unavailable White, F Neto MD Unavailable Unavailable White, F Neto MD Unavailable Unavailable White, F Neto MD Unavailable Unavailable White, F Neto MD Unavailable Unavailable White, F Neto MD Unavailable Unavailable White, F Neto MD Unavailable Unavailable Re-disclosure Warning The records that you are about to access may contain information from federally-assisted alcohol or drug abuse programs. If such information is present, then the following federally mandated warning applies: This information has been disclosed to you from records protected by federal confidentiality rules (42 CFR part 2). The federal rules prohibit you from making any further disclosure of this information unless further disclosure is expressly permitted by the written consent of the person to whom it pertains or as otherwise permitted by 42 CFR part 2. A general authorization for the release of medical or other information is NOT sufficient for this purpose. The Federal rules restrict any use of the information to criminally investigate or prosecute any alcohol or drug abuse patient.The records that you are about to access may contain highly sensitive health information, the redisclosure of which is protected by Article 27-F of the [facility] Public Health law. If you continue you may have access to information: Regarding HIV / AIDS; Provided by facilities licensed or operated by the [facility] Office of Mental Health; or Provided by the [facility] Office for People With Developmental Disabilities. If such information is present, then the following [facility] mandated warning applies: This information has been disclosed to you from confidential records which are protected by state law. State law prohibits you from making any further disclosure of this information without the specific written consent of the person to whom it pertains, or as otherwise permitted by law. Any unauthorized further disclosure in violation of state law may result in a fine or fpc sentence or both. A general authorization for the release of medical or other information is NOT sufficient authorization for further disc losure. Family History Family Member Name Family Member Gender Family Member Status Date o f Status Description Data Source(s) Unknown Female Problem [facility] ([facility]) Unknown Female Problem [facility] ([facility]) Unknown Female Problem [facility] Encounters Encounter Providers Location Date Indications Data Source(s ) Outpatient Attender: [facility] 06/17 07:00:00 AM EST MEDENT ([facility] ) Outpatient [address] [place] [phone] 06/16/2020 12:00:00 AM EST eCW1 (Counts include 234 beds at the [facility]) [address] [phone] 06/04/2020 12:00:00 AM EST eCW1 (Counts include 234 beds at the [facility]) Outpatient [address] [place] [phone] 07/31/2019 12:00:00 AM EDT eCW1 (Counts include 234 beds at the [facility]) Outpatient 06/07/2019 12:59:00 PM EST [facility] [address] [phone] 06/03/2019 12:00:00 AM EST eCW1 (Counts include 234 beds at the [facility]) Medications Medication Brand Name Start Date Product Form Dose Route Admi nistrative Instructions Pharmacy Instructions Status Indications Reaction Description Data Source(s) 500 mg 07/05/2019 12:00:00 AM EST capsule 4 TAKE FOUR CAPSULES BY MOUTH 1 HOUR PRIOR TO DENTAL PROCEDURE TAKE FOUR CAPSULES BY MOUTH 1 HOUR PRIOR TO DENTAL PROCEDURE SOLD: 07/05/2019 [facility] 500 mg 07/05/2019 12:00:00 AM EST capsule 4 TAKE FOUR CAPSULES BY MOUTH 1 HOUR PRIOR TO DENTAL PROCEDURE TAKE FOUR CAPSULES BY MOUTH 1 HOUR PRIOR TO DENTAL PROCEDURE SOLD: 01/08/2020 [facility] 500 mg 07/05/2019 12:00:00 AM EST capsule 4 TAKE FOUR CAPSULES BY MOUTH 1 HOUR PRIOR TO DENTAL PROCEDURE TAKE FOUR CAPSULES BY MOUTH 1 HOUR PRIOR TO DENTAL PROCEDURE SOLD: 01/25/2020 [facility] 17.5-3.13-1.6 gram 04/23/2019 12:00:00 AM EST [facility] 354 USE DIRECTED USE DIRECTED SOLD: 05/03/2019 [facility] Insurance Providers Payer name Policy type / Coverage type Policy ID Covered democrat ID Covered democrat's relationship to yan Policy Yan Plan Information [place] 302/307 [id number] SP [id number] [place] 306/806 [id number] SP [id number] EXCELLUS BCBS B [id number] S VYS [facility] [id number] [facility] P [id number] SELF [id number] [place] 306/806 [id number] SP [id number] [place] 306/806 [id number] SP [id number] EXCELLUS BCBS [id number] Mayra VYS [id number] [facility] Trad/MX Commercial [id number] Self [id number] EXCELLUS BCBS PI PI [place] Trad/MX Commercial [id number] Self [id number] [employer] [place] 306/806 [id number] SP [id number] [place] 306/806 [id number] SP [id number] [place] Trad/MX Commercial [id number] Self [id number] [place] PPO 302/307 [id number] SP [id number] [place] Trad/MX Commercial Self BCBS [place] PPO 302/307 [id number] SP [id number] [employer] [place] 306/806 [id number] SP [id number] [employer] [place] 306/806 [id number] SP [id number] Problems, Conditions, and Diagnoses Code Display Name Description Problem Type Effective Dates Data Source(s) D22.62 [id number] Melanocytic nevi of left upper l imb, including shoulder Problem 08/19/2019 12:00:00 AM EDT eCW1 ([facility]) D22.71 [id number] Melanocytic nevi of right lower limb, inc luding hip Problem 08/19/2019 12:00:00 AM EDT eCW1 ([facility]) D22.72 [id number] Melanocytic nevi of left lower limb, incl uding hip Problem 08/19/2019 12:00:00 AM EDT eCW1 ([facility]) D22.30 [id number] Melanocytic nevi of face Problem 08/19/2019 12:00:00 AM EDT eCW1 ([facility]) D22.5 [id number] Melanocytic nevi of trunk Problem 08/19/2019 12:00:00 AM EDT eCW1 ([facility]) D22.61 [id number] Melanocytic nevi of right upper limb, including shoulder Problem 08/19/2019 12:00:00 AM EDT eCW1 ([facility]) Z85.828 [id number] History of nonmelanoma skin cancer Proble m 08/19/2019 12:00:00 AM EDT eCW1 ([facility]) Surgeries/Procedures Procedure Description Date Indications Data Source(s) Colonoscopy 05/22/2019 12:00:00 AM JACOBY HUERTA ([facility]) Results ID Date Data Source WWBC DIGITAL / ISRAEL BILATERAL MAMMO SCREENING (Ultraso und if indicated) 06/16/2020 12:00:00 AM EST eCW1 ([facility]) Name Value Range Interpretation Code Description Data Suha rce(s) Supporting Document(s) WWBC DIGITAL / ISRAEL BILAT ERAL MAMMO SCREENING (Ultrasound if indicated) eCW1 ([facility]) ID Date Data Source [id number] 06/11/2020 12:04:00 PM EST MEDENT ([facility]) Name Value Range Interpretation Code Description Data Suha rce(s) Supporting Document(s) Calcidiol [Mass/volume] in Serum or Plasma 61.8 ng/mL 30.0-100.0 [facility] ([facility]) ID Date Data Source [id number] 06/11/2020 12:04:00 PM EST [facility] ([facility]) Name Value Range Interpretation Code Description Data Suha rce(s) Supporting Document(s) Free T4 1.07 ng/dL 0.76-1.46 [facility]) Thyroid Stimulating Hormone 2.690 uIU/ML 0.358-3.740 [facility] ([facility]) ID Date Data Source [id number] 06/11/2020 12:04:00 PM EST [facility] ([facility]) Name Value Range Interpretation Code Description Data Suha rce(s) Supporting Document(s) Triglycerides Level 88 mg/dL [facility] ([facility]) HDL Cholesterol 78 mg/dL [facility] ([facility] LDL Cholesterol 139 mg/dL [facility] ([facility]) Cholesterol Level 235 mg/dL [facility] ([facility]) Non-HDL-C 157 mg/dL [facility]) Cholesterol Risk Ratio 3.012 [facility] ([facility]) ID Date Data Source [id number] 06/11/2020 12:04:00 PM EST [facility] ([facility]) Name Value Range Interpretation Code Description Data Suha rce(s) Supporting Document(s) Creatinine For GFR 0.73 mg/dL 0.55-1.30 [facility] ([facility]) Glucose, Fasting 92 mg/dL 70-100 [facility] ([facility]) Blood Urea Nitrogen 13 mg/dL 7-18 [facility] ([facility]) Sodium Level 133 meq/L 136-145 [facility] ([facility]) Glomerular Filtration Rate Laboratory test result [facility] ([facility]) <content>Units are mL/min/1.73 m2</content>
<content></content>
<content>Chronic Kidney Disease Staging per NKF:</content>
<content></content>
<content>Stage I & II GFR >=60 Normal to Mildly Decreased</content>
<content>Stage III GFR 30- 59 Moderately Decreased</content>
<content>Stage IV GFR 15-29 Severely Decreased</content>
<content>Stage V GFR <15 Very Little GFR Left</content>
<content>ESRD GFR <15 on ADJUNCT INSTRUCTOR</content>
<content></content> Potassium Serum 4.3 meq/L 3.5-5.1 MED[facility] ([facility]) Anion Gap 7 meq/L 8-16 [facility] Carbon Dioxide Level 29 meq/L 21-32 [facility] ([facility]) Chloride Level 97 meq/L 98-107 [facility] ([facility]) Calcium Level 10.2 mg/dL 8.8-10.2 [facility] ([facility]) Ast/Sgot 23 U/L 7-37 [facility] ([facility]) Alt/SGPT 27 U/L 12-78 [facility] ([facility]) Alkaline Phosphatase 95 U/L 45-117 [facility] ([facility]) Total Protein 7.5 GM/DL 6.4-8.2 [facility] ([facility]) Bilirubin,Total 0.3 mg/dL 0.2-1.0 [facility] ([facility]) Albumin 4.3 GM/DL 3.2-5.2 [facility] ([facility]) Albumin/Globulin Ratio 1.3 1.2-2.2 [facility] ([facility]) ID Date Data Source [id number] 12/05/2019 09:32:00 AM EDT [facility] ([facility]) Name Value Range Interpretation Code Description Data Suha rce(s) Supporting Document(s) Thyroid Stimulating Hormone 2.780 uIU/ML 0.358-3.740 [facility] ([facility]) Free T4 1.10 ng/dL 0.76-1.46 [facility] ID Date Data Source [id number] 12/05/2019 09:32:00 AM EDT [facility] ([facility]) Name Value Range Interpretation Code Description Data Suha rce(s) Supporting Document(s) Triglycerides Level 49 mg/dL [facility] ([facility]) Cholesterol Level 252 mg/dL [facility] ([facility]) LDL Cholesterol 149 mg/dL [facility] ([facility] Non-HDL-C 159 mg/dL [facility] HDL Cholesterol 93 mg/dL [facility] ([facility] Cholesterol Risk Ratio 2.709 [facility] ([facility]) ID Date Data Source [id number] 12/05/2019 09:32:00 AM EDT [facility] ([facility]) Name Value Range Interpretation Code Description Data Suha rce(s) Supporting Document(s) Glucose, Fasting 103 mg/dL 70-100 [facility] ([facility]) Creatinine For GFR 0.84 mg/dL 0.55-1.30 [facility] ([facility]) Blood Urea Nitrogen 22 mg/dL 7-18 [facility] ([facility]) Glomerular Filtration [facility] <content>Units are mL/min/1.73 m2</content>
<content></content>
<content>Chronic Kidney Disease Staging per NKF:</content>
<content></content>
<content>Stage I & II GFR >=60 Normal to Mildly Decreased</content>
<content>Stage III GFR 30- 59 Moderately Decreased</content>
<content>Stage IV GFR 15-29 Severely Decreased</content>
<content>Stage V GFR <15 Very Little GFR Left</content>
<content>ESRD GFR <15 on ADJUNCT INSTRUCTOR</content>
<content></content> Chloride Level 104 meq/L 98-107 [facility] ([facility]) Potassium Serum 4.1 meq/L 3.5-5.1 [facility] ([facility]) Sodium Level 139 meq/L 136-145 [facility] ([facility]) Calcium Level 9.6 mg/dL 8.8-10.2 [facility] ([facility]) Carbon Dioxide Level 31 meq/L 21-32 [facility] ([facility]) Anion Gap 4 meq/L 8-16 [facility]) Ast/Sgot 27 U/L 7-37 [facility]) Alt/SGPT 25 U/L 12-78 [facility]) Alkaline Phosphatase 103 U/L 45-117 [facility] ([facility]) Bilirubin,Total 0.4 mg/dL 0.2-1.0 [facility] ([facility]) Albumin 4.4 GM/DL 3.2-5.2 [facility]) Albumin/Globulin Ratio 1.3 1.2-2.2 [facility] ([facility]) Total Protein 7.7 GM/DL 6.4-8.2 [facility] ([facility]) Procedure Social History Code Duration Value Status Description Data Source(s ) Smoking 06/16/2020 12:00:00 AM EST Never Smoker completed Never S ralph eCW1 ([facility]) Vital Signs ID Date Data Source UNK Name Value Range Interpretation Code Description Data Source(s) Body mass index (BMI) [Ratio] 21.8 kg/m2 21.8 k g/m2 [facility] ([facility]) Body weight 127.00 [lb_av] 127.00 [lb_av] MEDEN T ([facility]) Body height 64 [in_i] 64 [in_i] [facility] ([facility]) 5'4" Heart rate 72 /min 72 /min [facility] ([facility]) Diastolic blood pressure 70 mm[Hg] 70 mm[Hg] [facility] ([facility]) Systolic blood pressure 126 mm[Hg] 126 mm[Hg] M EDENT ([facility]) Diastolic blood pressure 72 mm[Hg] 72 mm[Hg] eCW1 ([facility]) Systolic blood pressure 110 mm[Hg] 110 mm[Hg] e CW1 ([facility]) Body mass index (BMI) [Ratio] 21.97 kg/m2 21.97 kg/m2 W1 ([facility]) Body height 63.25 [in_i] 63.25 [in_i] eCW[facility] Body weight 56.7 kg 56.7 kg W1 ([facility]) Body weight 125 [lb_av] 125 [lb_av] eCW1 ([facility]) Body mass index (BMI) [Ratio] 21.5 kg/m2 21.5 k g/m2 MED[facility] ([facility]) Body weight 125.00 [lb_av] 125.00 [lb_av] MEDEN T ([facility]) Body height 64 [in_i] 64 [in_i] MED[facility] ([facility]) 5'4" Heart rate 92 /min 92 /min MED[facility] ([facility]) Diastolic blood pressure 78 mm[Hg] 78 mm[Hg] MED[facility] ([facility]) Systolic blood pressure 128 mm[Hg] 128 mm[Hg] M EDENT ([facility]) Diastolic blood pressure 90 mm[Hg] 90 mm[Hg] [facility] ([facility]) Systolic blood pressure 146 mm[Hg] 146 mm[Hg] M EDENT ([facility]) Diastolic blood pressure 84 mm[Hg] 84 mm[Hg] eCW1 ([facility]) Systolic blood pressure 118 mm[Hg] 118 mm[Hg] e CW1 ([facility]) Body mass index (BMI) [Ratio] 21.61 kg/m2 21.61 kg/m2 W1 ([facility]) Body height 63.25 [in_i] 63.25 [in_i] eCW1 ([facility] Body weight 123.0 [lb_av] 123.0 [lb_av] eCW1 ([facility]) Diastolic blood pressure 74 mm[Hg] 74 mm[Hg] eCW1 ([facility]) Systolic blood pressure 136 mm[Hg] 136 mm[Hg] e CW1 ([facility]) Body mass index (BMI) [Ratio] 21.79 kg/m2 21.79 kg/m2 eCW1 ([facility]) Body height 63.25 [in_us] 63.25 [in_us] eCW1 ([facility]) Body weight Measured 124 [lb_av] 124 [lb_av] eC W1 ([facility])
--- NOTE | 2020-06-25 17:38 | REP ---
INDICATION: fall COMPARISON: None. TECHNIQUE: Four views left wrist. FINDINGS: There is an intra-articular fracture of the distal radius which is not significantly displaced. There is nondisplaced fracture of the ulnar styloid process. There is mild narrowing of the radiocarpal joint well as the joint between the trapezium and base of 1st metacarpal. IMPRESSION: Nondisplaced intra-articular fracture distal radius. Nondisplaced fracture ulnar styloid process. <Electronically signed by Delvin Wilkinson > 06/25/20 [id number]
--- NOTE | 2020-06-25 17:41 | REP ---
INDICATION: fall COMPARISON: None. TECHNIQUE: Four views right hand. FINDINGS: There is a mildly comminuted nondisplaced fracture of the 5th proximal phalanx. There is no other evidence of acute fracture, dislocation or intrinsic bone disease. IMPRESSION: Mildly comminuted nondisplaced fracture of 5th proximal phalanx. <Electronically signed by Delvin Wilkinson > 06/25/20 [id number]
[2020-06-25] MEDS ORDERED: ONDANSETRON 4 MG ORAL DISINTEGRATING TAB PO ONE (19:00)
[2020-06-25] MEDS ORDERED: PERCOCET 5MG/325MG TAB PO ONE (19:00)
--- OUTSIDE RECORDS SUMMARY | 2020-06-25 19:37 | CCD ---
Author Author [facility] Organization [facility] Address Unknown Phone Unavailable Care Team Providers Care Visual Inspector Name Role Phone Seema Camp MD Unavailable [...] is protected by Article 27-F of the [facility] Public Health law. If you continue you may have access to information: Regarding HIV / AIDS; Provided by facilities licensed or operated by the [facility] Office of Mental Health; or Provided by the [facility] Office for People With Developmental Disabilities. If such information is present, then the following [facility] mandated warning applies: This information has been [...] law may result in a fine or halfway sentence or both. A general authorization for the release of medical or other information is NOT sufficient authorization for further disc losure. Family History Family Member Name Family Member Gender Family Member Status Date o f Status Description Data Source(s) Unknown Female Problem [facility] ([facility]) Unknown Female Problem [facility] ([facility]) Unknown Female Problem [facility] Encounters Encounter Providers Location Date Indications Data Source(s ) Outpatient Attender: [facility] 06/17 07:00:00 AM EST MEDENT ([facility] ) Outpatient [address] [place] [phone] 06/16/2020 12:00:00 AM EST eCW1 ([facility]) [address] [phone] 06/04/2020 12:00:00 AM EST eCW1 ([facility]) Outpatient [address] [place] [phone] 07/31/2019 12:00:00 AM EDT eCW1 ([facility]) Outpatient 06/07/2019 12:59:00 PM EST [facility] [address] [phone] 06/03/2019 12:00:00 AM EST eCW1 ([facility]) Medications Medication Brand Name Start Date Product Form Dose Route Admi nistrative Instructions Pharmacy Instructions Status Indications Reaction Description Data Source(s) 500 mg 07/05/2019 12:00:00 AM EST capsule 4 TAKE FOUR CAPSULES BY MOUTH 1 HOUR PRIOR TO DENTAL PROCEDURE TAKE FOUR CAPSULES BY MOUTH 1 HOUR PRIOR TO DENTAL PROCEDURE SOLD: 07/05/2019 [facility] 500 mg 07/05/2019 12:00:00 AM EST [...] HOUR PRIOR TO DENTAL PROCEDURE SOLD: 01/25/2020 [facility] 17.5-3.13-1.6 gram 04/23/2019 12:00:00 AM EST [facility] 354 USE DIRECTED USE DIRECTED SOLD: 05/03/2019 [facility] Insurance Providers Payer name Policy type / Coverage type Policy ID Covered libertarian ID Covered libertarian's relationship to yan Policy Yan Plan Information [place] 302/307 [id number] SP [id number] [place] 306/806 [id number] SP [id number] EXCELLUS BCBS B [id number] S VYS [facility] [id number] [facility] P [id number] SELF [id number] [employer] [place] 306/806 [id number] SP [id number] [place] 306/806 [id number] SP [id number] EXCELLUS BCBS [id number] Mayra VYS [id number] [facility] Trad/MX Commercial [id number] Self [id number] EXCELLUS BCBS PI PI BS [place] Trad/MX Commercial [id number] Self [id number] [employer] [place] 306/806 [id number] SP [id number] [place] 306/806 [id number] SP [id number] BS [place] Trad/MX Commercial [id number] Self [id number] [place] P[place] 302/307 [id number] SP [id number] BS [place] Trad/MX Commercial Self BCBS [employer] PPO 302/307 [id number] SP [id number] [employer] [place] 306/806 [id number] SP [id number] [employer] [place] 306/806 [id number] SP [id number] Problems, Conditions, and Diagnoses Code Display Name Description Problem Type Effective Dates Data Source(s) D22.62 [id number] Melanocytic nevi of left upper l imb, including shoulder Problem 08/19/2019 12:00:00 AM EDT eCW1 ([facility]) D22.71 [id number] Melanocytic nevi of right lower limb, inc luding hip Problem 08/19/2019 12:00:00 AM EDT eCW1 ([facility]) D22.72 [id number] Melanocytic nevi of left lower limb, incl uding hip Problem 08/19/2019 12:00:00 AM EDT eCW1 ([facility]) D22.30 [id number] Melanocytic nevi of face Problem 08/19/2019 12:00:00 AM EDT eCW1 ([facility]) D22.5 [id number] Melanocytic nevi of trunk Problem 08/19/2019 12:00:00 AM EDT eCW1 ([facility]) D22.61 [id number] Melanocytic nevi of right upper limb, including shoulder Problem 08/19/2019 12:00:00 AM EDT eCW1 ([facility]) Z85.828 [id number] History of nonmelanoma skin cancer Proble m 08/19/2019 12:00:00 AM EDT eCW1 ([facility]) Surgeries/Procedures Procedure Description Date Indications Data Source(s) Colonoscopy 05/22/2019 12:00:00 AM JACOBY HUERTA ([facility]) Results ID Date Data Source WWBC DIGITAL / ISRAEL BILATERAL MAMMO SCREENING (Ultraso und if indicated) 06/16/2020 12:00:00 AM EST eCW1 ([facility]) Name Value Range Interpretation Code Description Data Suha rce(s) Supporting Document(s) WWBC DIGITAL / ISRAEL BILAT ERAL MAMMO SCREENING (Ultrasound if indicated) eCW1 ([facility]) ID Date Data Source [id number] 06/11/2020 12:04:00 PM EST MEDENT ([facility]) Name Value Range Interpretation Code Description Data Suha rce(s) Supporting Document(s) Calcidiol [Mass/volume] in Serum or Plasma 61.8 ng/mL 30.0-100.0 [facility] ([facility]) ID Date Data Source [id number] 06/11/2020 12:04:00 PM EST [facility] ([facility]) Name Value Range Interpretation Code Description Data Suha rce(s) Supporting Document(s) Free T4 1.07 ng/dL 0.76-1.46 [facility]) Thyroid Stimulating Hormone 2.690 uIU/ML 0.358-3.740 [facility] ([facility]) ID Date Data Source [id number] 06/11/2020 12:04:00 PM EST [facility] ([facility]) Name Value Range Interpretation Code Description Data Suha rce(s) Supporting Document(s) Triglycerides Level 88 mg/dL [facility] ([facility]) HDL Cholesterol 78 mg/dL [facility] ([facility]) LDL Cholesterol 139 mg/dL [facility] ([facility]) Cholesterol Level 235 mg/dL [facility] ([facility]) Non-HDL-C 157 mg/dL [facility]) Cholesterol Risk Ratio 3.012 [facility] ([facility]) ID Date Data Source [id number] 06/11/2020 12:04:00 PM EST [facility] ([facility]) Name Value Range Interpretation Code Description Data Suha rce(s) Supporting Document(s) Creatinine For GFR 0.73 mg/dL 0.55-1.30 [facility] ([facility]) Glucose, Fasting 92 mg/dL 70-100 [facility] ([facility]) Blood Urea Nitrogen 13 mg/dL 7-18 [facility] ([facility]) Sodium Level 133 meq/L 136-145 [facility] ([facility]) Glomerular Filtration Rate Laboratory test result [facility] ([facility]) <content>Units are mL/min/1.73 m2</content>
<content></content>
<content>Chronic Kidney Disease Staging per NKF:</content>
<content></content>
<content>Stage I & II GFR >=60 Normal to Mildly Decreased</content>
<content>Stage III GFR 30- 59 Moderately Decreased</content>
<content>Stage IV GFR 15-29 Severely Decreased</content>
<content>Stage V GFR <15 Very Little GFR Left</content>
<content>ESRD GFR <15 on DOOR TO DOOR [employer]DR[employer] COLLECTOR</content>
<content></content> Potassium Serum 4.3 meq/L 3.5-5.1 [facility] ([facility]) Anion Gap 7 meq/L 8-16 [facility]) Carbon Dioxide Level 29 meq/L 21-32 [facility] ([facility]) Chloride Level 97 meq/L 98-107 [facility] ([facility]) Calcium Level 10.2 mg/dL 8.8-10.2 [facility] ([facility]) Ast/Sgot 23 U/L 7-37 [facility] ([facility]) Alt/SGPT 27 U/L 12-78 [facility] ([facility]) Alkaline Phosphatase 95 U/L 45-117 [facility] ([facility]) Total Protein 7.5 GM/DL 6.4-8.2 [facility] ([facility]) Bilirubin,Total 0.3 mg/dL 0.2-1.0 [facility] ([facility]) Albumin 4.3 GM/DL 3.2-5.2 [facility] ([facility]) Albumin/Globulin Ratio 1.3 1.2-2.2 [facility] ([facility]) ID Date Data Source [id number] 12/05/2019 09:32:00 AM EDT [facility] ([facility]) Name Value Range Interpretation Code Description Data Suha rce(s) Supporting Document(s) Thyroid Stimulating Hormone 2.780 uIU/ML 0.358-3.740 [facility] ([facility]) Free T4 1.10 ng/dL 0.76-1.46 [facility]) ID Date Data Source [id number] 12/05/2019 09:32:00 AM EDT [facility] ([facility]) Name Value Range Interpretation Code Description Data Suha rce(s) Supporting Document(s) Triglycerides Level 49 mg/dL [facility] ([facility]) Cholesterol Level 252 mg/dL [facility] ([facility]) LDL Cholesterol 149 mg/dL [facility] ([facility]) Non-HDL-C 159 mg/dL [facility] HDL Cholesterol 93 mg/dL [facility] ([facility]) Cholesterol Risk Ratio 2.709 [facility] ([facility]) ID Date Data Source [id number] 12/05/2019 09:32:00 AM EDT [facility] ([facility]) Name Value Range Interpretation Code Description Data Suha rce(s) Supporting Document(s) Glucose, Fasting 103 mg/dL 70-100 [facility] ([facility]) Creatinine For GFR 0.84 mg/dL 0.55-1.30 [facility] ([facility]) Blood Urea Nitrogen 22 mg/dL 7-18 [facility] ([facility]) Glomerular Filtration Rate [facility]) <content>Units are mL/min/1.73 m2</content>
<content></content>
<content>Chronic Kidney Disease Staging per NK[facility]:</content>
<content></content>
<content>Stage I & II GFR >=60 Normal to Mildly Decreased</content>
<content>Stage III GFR 30- 59 Moderately Decreased</content>
<content>Stage IV GFR 15-29 Severely Decreased</content>
<content>Stage V GFR <15 Very Little GFR Left</content>
<content>ESRD GFR <15 on DOOR TO DOOR [employer] COL[employer]OR</content>
<content></content> Chloride Level 104 meq/L 98-107 [facility] ([facility]) Potassium Serum 4.1 meq/L 3.5-5.1 [facility] ([facility]) Sodium Level 139 meq/L 136-145 [facility] ([facility]) Calcium Level 9.6 mg/dL 8.8-10.2 [facility] ([facility]) Carbon Dioxide Level 31 meq/L 21-32 [facility] ([facility]) Anion Gap 4 meq/L 8-16 [facility] Ast/Sgot 27 U/L 7-37 [facility]) Alt/SGPT 25 U/L 12-78 [facility] Alkaline Phosphatase 103 U/L 45-117 [facility] ([facility]) Bilirubin,Total 0.4 mg/dL 0.2-1.0 [facility] ([facility]) Albumin 4.4 GM/DL 3.2-5.2 [facility]) Albumin/Globulin Ratio 1.3 1.2-2.2 [facility] ([facility]) Total Protein 7.7 GM/DL 6.4-8.2 [facility] ([facility]) Procedure Social History Code Duration Value Status Description Data Source(s ) Smoking 06/16/2020 12:00:00 AM EST Never Smoker completed Never S ralph eCW1 ([facility]) Vital Signs ID Date Data Source UNK Name Value Range Interpretation Code Description Data Source(s) Body mass index (BMI) [Ratio] 21.8 kg/m2 21.8 k g/m2 [facility] ([facility]) Body weight 127.00 [lb_av] 127.00 [lb_av] MEDEN T ([facility]) Body height 64 [in_i] 64 [in_i] [facility] ([facility]) 5'4" Heart rate 72 /min 72 /min [facility] ([facility]) Diastolic blood pressure 70 mm[Hg] 70 mm[Hg] [facility] ([facility]) Systolic blood pressure 126 mm[Hg] 126 mm[Hg] M [facility] ([facility]) Diastolic blood pressure 72 mm[Hg] 72 mm[Hg] eCW1 ([facility]) Systolic blood pressure 110 mm[Hg] 110 mm[Hg] e CW1 ([facility]) Body mass index (BMI) [Ratio] 21.97 kg/m2 21.97 kg/m2 W1 ([facility]) Body height 63.25 [in_i] 63.25 [in_i] eCW1 ([facility]) Body weight 56.7 kg 56.7 kg W1 ([facility]) Body weight 125 [lb_av] 125 [lb_av] eCW1 ([facility]) Body mass index (BMI) [Ratio] 21.5 kg/m2 21.5 k g/m2 MED[facility] ([facility]) Body weight 125.00 [lb_av] 125.00 [lb_av] MEDEN T ([facility]) Body height 64 [in_i] 64 [in_i] [facility] ([facility]) 5'4" Heart rate 92 /min 92 /min [facility] ([facility]) Diastolic blood pressure 78 mm[Hg] 78 mm[Hg] [facility] ([facility]) Systolic blood pressure 128 mm[Hg] 128 mm[Hg] M EDENT ([facility]) Diastolic blood pressure 90 mm[Hg] 90 mm[Hg] [facility] ([facility]) Systolic blood pressure 146 mm[Hg] 146 mm[Hg] M EDENT ([facility]) Diastolic blood pressure 84 mm[Hg] 84 mm[Hg] eCW1 ([facility]) Systolic blood pressure 118 mm[Hg] 118 mm[Hg] e CW1 ([facility]) Body mass index (BMI) [Ratio] 21.61 kg/m2 21.61 kg/m2 W1 ([facility]) Body height 63.25 [in_i] 63.25 [in_i] eCW1 ([facility]) Body weight 123.0 [lb_av] 123.0 [lb_av] eCW1 ([facility]) Diastolic blood pressure 74 mm[Hg] 74 mm[Hg] eCW1 ([facility]) Systolic blood pressure 136 mm[Hg] 136 mm[Hg] e CW1 ([facility]) Body mass index (BMI) [Ratio] 21.79 kg/m2 21.79 kg/m2 eCW1 ([facility]) Body height 63.25 [in_us] 63.25 [in_us] eCW1 ([facility]) Body weight Measured 124 [lb_av] 124 [lb_av] eC W1 ([facility])
[2020-06-25] MEDS ORDERED: ONDA4TAB6 PO (19:57)
[2020-06-25] MEDS ORDERED: PERC5TAB12 PO (19:57)
[2020-06-25 20:06] VITALS: BP 111/69
--- NOTE | 2020-06-25 20:44 | REPVR ---
PROCEDURE INFORMATION: Exam: CT Left Upper Extremity Without Contrast, Wrist Exam date and time: 06/25/2020 7:15 PM Age: 65 years old Clinical indication: Injury or trauma; Fall; Blunt trauma (contusions or hematomas); Wrist; Left; Additional info: Further evaluate left wrist fracture TECHNIQUE: Imaging protocol: CT of the Left upper extremity without contrast was performed. Exam focused on the wrist. Radiation optimization: All CT scans at this facility use at least one of these dose optimization techniques: automated exposure control; mA and/or kV adjustment per patient size (includes targeted exams where dose is matched to clinical indication); or iterative reconstruction. COMPARISON: OR Wrist, complete 06/25/2020 5:13 PM FINDINGS: Bones/joints: Diffuse demineralization of the bones. Acute comminuted fracture of the distal radial metaphyses and involving the articular surface of the radius. Acute fracture of the ulnar styloid process. There is dorsal angulation of the fracture fragments of the radial fracture. Soft tissues: Normal. IMPRESSION: Acute comminuted fracture of the distal radial metaphyses and involving the articular surface of the radius with dorsal angulation of the fracture fragments. Acute fracture of the ulnar styloid process. Electronically signed by: Dion Marmolejo On 06/25/2020 20:44:36 PM
== END 2020-06-25 20:10 | disposition home or self-care (01) ==
LOC: M ED 16:44
DX: S52.515A Nondisplaced fracture of left radial styloid process, initial encounter for closed fracture (principal); S52.615A Nondisplaced fracture of left ulna styloid process, initial encounter for closed fracture; S62.646A Nondisplaced fracture of proximal phalanx of right little finger, initial encounter for closed fracture; W01.0XXA Fall on same level from slipping, tripping and stumbling without subsequent striking against object, initial encounter; Y92.9 Unspecified place or not applicable; Y93.9 Activity, unspecified; Y99.9 Unspecified external cause status; Z79.899 Other long term (current) drug therapy
CPT/HCPCS: 73110; 73130; 73200; 99283; Q0162

== ENCOUNTER 2020-08-11 11:28 | Outpatient (RCR) | payer BC ==
[~2020-08-11 11:28] MED LIST changes: +ONDA4TAB6 PO; +PERC5TAB12 PO
== END 2020-08-12 ==
LOC: M OT 11:28
PROVIDERS: ATTEND Plastic Surgery Surgery of the Hand
DX: S52.572D Other intraarticular fracture of lower end of left radius, subsequent encounter for closed fracture with routine healing (principal)

== ENCOUNTER 2020-09-09 13:45 | Outpatient (RCR) | payer BC | END 2020-09-11 | LOC: M OT 13:45 | PROVIDERS: ATTEND Plastic Surgery Surgery of the Hand | DX: S52.92XA Unspecified fracture of left forearm, initial encounter for closed fracture (principal); W18.30XA Fall on same level, unspecified, initial encounter; Y92.009 Unspecified place in unspecified non-institutional (private) residence as the place of occurrence of the external cause; S62.601A Fracture of unspecified phalanx of left index finger, initial encounter for closed fracture ==

== ENCOUNTER → 2020-10-02 | Outpatient (REF) | payer BC | LOC: M WUC 09:59 | PROVIDERS: ATTEND Nurse Practitioner Family | DX: N39.0 Urinary tract infection, site not specified (principal) ==

== ENCOUNTER 2020-10-07 11:13 | Outpatient (RCR) | payer BC | END 2020-10-12 | LOC: M OT 11:13 | PROVIDERS: ATTEND Plastic Surgery Surgery of the Hand | DX: S62.602D Fracture of unspecified phalanx of right middle finger, subsequent encounter for fracture with routine healing (principal); W18.30XD Fall on same level, unspecified, subsequent encounter; Y92.009 Unspecified place in unspecified non-institutional (private) residence as the place of occurrence of the external cause ==

== ENCOUNTER 2020-11-09 13:44 | Outpatient (RCR) | payer BC | END 2020-11-11 | LOC: M OT 13:44 | PROVIDERS: ATTEND Plastic Surgery Surgery of the Hand | DX: S62.662A Nondisplaced fracture of distal phalanx of right middle finger, initial encounter for closed fracture (principal); W18.30XA Fall on same level, unspecified, initial encounter; Y92.009 Unspecified place in unspecified non-institutional (private) residence as the place of occurrence of the external cause ==

== ENCOUNTER 2020-12-09 13:44 | Outpatient (RCR) | payer BC | END 2020-12-12 | LOC: M OT 13:44 | PROVIDERS: ATTEND Plastic Surgery Surgery of the Hand | DX: S52.92XD Unspecified fracture of left forearm, subsequent encounter for closed fracture with routine healing (principal); S62.606A Fracture of unspecified phalanx of right little finger, initial encounter for closed fracture ==

== ENCOUNTER → 2020-12-28 | Outpatient (CLI) | payer BC ==
[2020-12-28 12:04] LABS: ALBUMIN 4.2 GM/DL (3.2-5.2); ALT/SGPT 31 U/L (12-78); BILIRUBIN,TOTAL 0.4 MG/DL (0.2-1.0); BLOOD UREA NITROGEN 14 MG/DL (7-18); CALCIUM LEVEL 9.2 MG/DL (8.8-10.2); CARBON DIOXIDE LEVEL 28 MEQ/L (21-32); CHLORIDE LEVEL 103 MEQ/L (98-107); CHOLESTEROL LEVEL 244 MG/DL (<200); CHOLESTEROL RISK RATIO 3.342 (<5); FREE T4 0.87 NG/DL (0.76-1.46); GLOMERULAR FILTRATION RATE > 60.0 (>45); GLUCOSE, FASTING 88 MG/DL (70-100); HDL CHOLESTEROL 73 MG/DL (>40); LDL CHOLESTEROL 129 MG/DL (<100); NON-HDL-C 171 MG/DL; POTASSIUM SERUM 4.3 MEQ/L (3.5-5.1); SODIUM LEVEL 136 MEQ/L (136-145); TOTAL PROTEIN 7.8 GM/DL (6.4-8.2); TRIGLYCERIDES LEVEL 210 MG/DL (<150)
== END ==
LOC: M LAB 11:05
PROVIDERS: ATTEND Family Medicine
DX: Z00.00 Encounter for general adult medical examination without abnormal findings (principal); E78.5 Hyperlipidemia, unspecified

== ENCOUNTER → 2021-06-17 | Outpatient (CLI) | payer BC | LOC: M WHC 07:25 | PROVIDERS: ATTEND Obstetrics & Gynecology | DX: Z12.31 Encounter for screening mammogram for malignant neoplasm of breast (principal) ==

== ENCOUNTER → 2021-06-21 | Outpatient (REF) | payer BC | LOC: M SFHCWAGY 12:53 | PROVIDERS: ATTEND Obstetrics & Gynecology | DX: Z12.4 Encounter for screening for malignant neoplasm of cervix (principal); Z01.419 Encounter for gynecological examination (general) (routine) without abnormal findings; Z77.9 Other contact with and (suspected) exposures hazardous to health ==

== ENCOUNTER → 2021-11-01 | Outpatient (REF) | payer BC | LOC: M SFHCDERM 17:51 | PROVIDERS: ATTEND Physician Assistant | DX: L57.0 Actinic keratosis (principal) ==

== ENCOUNTER → 2022-01-12 | Outpatient (CLI) | payer BC ==
[2022-01-12 12:15] LABS: ALBUMIN 4.1 GM/DL (3.2-5.2); ALT/SGPT 39 U/L (12-78); BILIRUBIN,TOTAL 0.3 MG/DL (0.2-1.0); BLOOD UREA NITROGEN 13 MG/DL (7-18); CALCIUM LEVEL 9.8 MG/DL (8.8-10.2); CARBON DIOXIDE LEVEL 27 MEQ/L (21-32); CHLORIDE LEVEL 101 MEQ/L (98-107); CHOLESTEROL LEVEL 257 MG/DL (<200); CHOLESTEROL RISK RATIO 3.212 (<5); CREATININE FOR GFR 0.74 MG/DL (0.55-1.30); GLOMERULAR FILTRATION RATE > 60.0 (>45); GLUCOSE, FASTING 95 MG/DL (70-100); HDL CHOLESTEROL 80 MG/DL (>40); LDL CHOLESTEROL 161 MG/DL (<100); NON-HDL-C 177 MG/DL; POTASSIUM SERUM 4.3 MEQ/L (3.5-5.1); SODIUM LEVEL 134 MEQ/L (136-145); TOTAL PROTEIN 7.4 GM/DL (6.4-8.2); TRIGLYCERIDES LEVEL 79 MG/DL (<150)
== END ==
LOC: M WUC 09:48
PROVIDERS: ATTEND Family Medicine
DX: Z00.00 Encounter for general adult medical examination without abnormal findings (principal); E07.9 Disorder of thyroid, unspecified; E78.5 Hyperlipidemia, unspecified

== ENCOUNTER → 2022-04-21 | Outpatient (CLI) | payer BC | LOC: M SOG 08:25 | PROVIDERS: ATTEND Orthopaedic Surgery Hand Surgery | DX: M79.644 Pain in right finger(s) (principal); Z87.81 Personal history of (healed) traumatic fracture ==

== ENCOUNTER → 2022-07-20 | Outpatient (CLI) | payer BC, MEDICARE ==
[2022-07-20 11:16] LABS: ALBUMIN 4.4 G/DL (3.2-5.2); ALKALINE PHOSPHATASE 101 U/L (46-116); ALT/SGPT 28 U/L (7.0-40); AST/SGOT 31 U/L (<34); BILIRUBIN,TOTAL 0.7 MG/DL (0.3-1.2); BLOOD UREA NITROGEN 14 MG/DL (9-23); CALCIUM LEVEL 9.8 MG/DL (8.3-10.6); CARBON DIOXIDE LEVEL 28 MMOL/L (20-31); CHLORIDE LEVEL 100 MMOL/L (98-107); CHOLESTEROL LEVEL 226 MG/DL (<200); CHOLESTEROL RISK RATIO 2.51 (<5); CREATININE FOR GFR 0.66 MG/DL (0.55-1.30); GLOMERULAR FILTRATION RATE > 60.0 (>45); GLUCOSE, FASTING 88 MG/DL (74-106); HDL CHOLESTEROL 89.8 MG/DL (>40); NON-HDL-C 136 MG/DL; POTASSIUM SERUM 4.5 MMOL/L (3.5-5.1); SODIUM LEVEL 136 MMOL/L (136-145); THYROID STIMULATING HORMONE 1.777 uIU/ML (0.55-4.78); TOTAL PROTEIN 7.5 G/DL (5.7-8.2); TRIGLYCERIDES LEVEL 66 MG/DL (<150)
== END ==
LOC: M LAB 09:35
PROVIDERS: ATTEND Family Medicine
DX: E78.5 Hyperlipidemia, unspecified (principal)

== ENCOUNTER → 2022-09-02 | Outpatient (CLI) | payer BC | LOC: M WHC 07:28 | PROVIDERS: ATTEND Obstetrics & Gynecology | DX: Z12.31 Encounter for screening mammogram for malignant neoplasm of breast (principal) ==

== ENCOUNTER → 2022-09-02 | Outpatient (REF) | payer BC | LOC: M SFHCWAGY 17:11 | PROVIDERS: ATTEND Obstetrics & Gynecology | DX: Z12.4 Encounter for screening for malignant neoplasm of cervix (principal) | CPT/HCPCS: 87624; G0123 ==

== ENCOUNTER → 2023-01-26 | Outpatient (CLI) | payer BC ==
[~2023-01-26] MED LIST changes: +CELE0.09 PO; -CELE1CAP9 PO
== END ==
LOC: M LAB 10:46
PROVIDERS: ATTEND Family Medicine
DX: Z00.00 Encounter for general adult medical examination without abnormal findings (principal); M85.9 Disorder of bone density and structure, unspecified; E07.9 Disorder of thyroid, unspecified; E55.9 Vitamin D deficiency, unspecified; E78.5 Hyperlipidemia, unspecified

== ENCOUNTER → 2023-01-26 | Outpatient (CLI) | payer BC ==
[2023-01-26 12:06] LABS: ALBUMIN 4.5 G/DL (3.2-5.2); ALKALINE PHOSPHATASE 97 U/L (46-116); ALT/SGPT 28 U/L (7.0-40); AST/SGOT 26 U/L (<34); BILIRUBIN,TOTAL 0.5 MG/DL (0.3-1.2); BLOOD UREA NITROGEN 13 MG/DL (9-23); CALCIUM LEVEL 10.3 MG/DL (8.3-10.6); CARBON DIOXIDE LEVEL 28 MMOL/L (20-31); CHLORIDE LEVEL 100 MMOL/L (98-107); CHOLESTEROL LEVEL 233 MG/DL (<200); CHOLESTEROL RISK RATIO 2.54 (<5); CREATININE FOR GFR 0.69 MG/DL (0.55-1.30); GLOMERULAR FILTRATION RATE > 60.0 (>45); GLUCOSE, FASTING 87 MG/DL (74-106); HDL CHOLESTEROL 91.6 MG/DL (>40); LDL CHOLESTEROL 128.8 MG/DL (<100); NON-HDL-C 141.4 MG/DL; POTASSIUM SERUM 4.6 MMOL/L (3.5-5.1); SODIUM LEVEL 136 MMOL/L (136-145); TOTAL PROTEIN 7.5 G/DL (5.7-8.2); TRIGLYCERIDES LEVEL 63 MG/DL (<150)
[2023-01-26 12:07] LABS: FREE T4 1.13 NG/DL (0.89-1.76)
[2023-01-26 12:08] LABS: THYROID STIMULATING HORMONE 1.613 uIU/ML (0.55-4.78)
[2023-01-26 13:46] LABS: TOTAL 25(OH) VITAMIN D 90.5 NG/ML (20.0-100.0)
== END ==
LOC: M LAB 10:41
PROVIDERS: ATTEND Family Medicine
DX: Z00.00 Encounter for general adult medical examination without abnormal findings (principal); E78.5 Hyperlipidemia, unspecified; E07.9 Disorder of thyroid, unspecified; E55.9 Vitamin D deficiency, unspecified; M85.9 Disorder of bone density and structure, unspecified

== ENCOUNTER → 2023-07-03 | Outpatient (CLI) | payer MEDICARE | LOC: M WHC 08:37 | PROVIDERS: ATTEND Family Medicine | DX: M81.0 Age-related osteoporosis without current pathological fracture (principal) ==

== ENCOUNTER → 2023-09-05 | Outpatient (CLI) | payer MEDICARE | LOC: M WHC 09:21 | PROVIDERS: ATTEND Family Medicine | DX: Z12.31 Encounter for screening mammogram for malignant neoplasm of breast (principal) ==

== ENCOUNTER → 2024-09-10 | Outpatient (CLI) | payer MEDICARE ==
[~2024-09-10] MED LIST changes: +ONDA-282 PO; -ONDA4TAB6 PO; +VITA250T27 PO; -VITA250T4 PO
== END ==
LOC: M WHC 08:25
PROVIDERS: ATTEND Family Medicine
DX: Z12.31 Encounter for screening mammogram for malignant neoplasm of breast (principal)